=== PATIENT | female | born 1945 | race Caucasian/White ===

== ENCOUNTER 2017-07-16 14:56 | Inpatient (IN) | payer OTHER, MEDICAID ==
[~2017-07-16] VITALS: Ht 157.5 cm; Wt 66.2 kg
[2017-07-16 16:46] LABS: INR 1.4
[2017-07-16 16:48] LABS: BASOPHILS % 0.3 % (0.0-2.0); EOSINOPHILS % 0.7 % (0.0-5.0); HEMATOCRIT. 44.9 % (36.0-48.0); HEMOGLOBIN. 15.2 g/dL (12.0-16.0); LYMPHOCYTES % 14.2 % (20.0-50.0); MEAN CORPUSCULAR HEMOGLOBIN 32.1 pg (28.0-32.0); MEAN CORPUSCULAR VOLUME 94.6 fL (81.0-99.0); MEAN PLATELET VOLUME 10.1 fl (7.4-10.4); MONOCYTES % 8.5 % (2.0-8.0); NEUTROPHILS % 76.3 % (40.0-76.0); PLATELET 122 x1000/uL (130-400); RED BLOOD CELL COUNT 4.75 mill/uL (4.2-5.4); RED CELL DISTRIBUTION WIDTH 14.4 % (11.6-14.6)
[2017-07-16] MEDS ORDERED: AZITHROMYCIN 500 MG in DEXT 5% WATER 250 ML IV STA (16:48)
[2017-07-16 16:49] LABS: CARBON DIOXIDE 24 mEq/L (21-32); CHLORIDE 101 mEq/L (98-107)
[2017-07-16 16:56] LABS: TROPONIN I 0.03 ng/mL (0.00-0.04)
[2017-07-16] MEDS ORDERED: CEFTRIAXONE 1 G PREMIX 50 ML IV ONE (17:00)
[2017-07-16] MEDS ORDERED: POTASSIUM CHLORIDE 20MEQ TABLET SR PO ONE (17:15)
[2017-07-16] MEDS ORDERED: ONDANSETRON HCL 4MG/2ML VIAL IV PRN (18:15)
[2017-07-16] MEDS ORDERED: ACETAMINOPHEN 650MG/20.3ML UDC GT PRN (18:15)
[2017-07-16] MEDS ORDERED: MAGNESIUM/ALUMINUM HYDROXIDE/SIMETHICONE 30ML UDC PO PRN (18:15)
[2017-07-16] MEDS ORDERED: DIPHENHYDRAMINE 50MG/ML VIAL IV PRN (18:15)
[2017-07-16] MEDS ORDERED: NA PHOS,M-B/NA PHOS,DI-BA ENEMA 118ML PR PRN (18:15)
[2017-07-16] MEDS ORDERED: CLONIDINE 0.1MG TABLET PO PRN (18:15)
[2017-07-16] MEDS ORDERED: GUAIFENESIN 200MG/10ML SUGAR FREE UDC PO PRN (18:15)
[2017-07-16] MEDS ORDERED: IPRATROPIUM/ALBUTEROL 0.5-3(2.5)MG/3ML NEB INH PRN (18:15)
[2017-07-16] MEDS ORDERED: ACETAMINOPHEN 325MG TABLET PO PRN (18:15)
[2017-07-16] MEDS ORDERED: ACETAMINOPHEN 650MG SUPP PR PRN (18:15)
[2017-07-16] MEDS ORDERED: DOCUSATE SODIUM 100MG CAPSULE PO PRN (18:15)
[2017-07-16] MEDS ORDERED: MORPHINE SULFATE 2 MG/ML CPJ (NOT FOR IM USE) IV ONE (18:30)
[2017-07-16] MEDS ORDERED: IOHEXOL-350 100 ML BOTTLE ONE (19:55)
[2017-07-16 20:36] VITALS: BP 137/61
[2017-07-16 21:00] VITALS: BP 137/61
[2017-07-16] MEDS ORDERED: ENOXAPARIN 40MG/0.4ML SYR SUBCUT SCH (21:00)
[2017-07-16] MEDS: HYDROCODONE/ACETAMINOPHEN 10/325MG TABLET PO PRN (22:01)
[2017-07-16] MEDS: PIPERACILLIN/TAZ 3.375G PREMIX 50 ML IV SCH (22:04)
[2017-07-16] MEDS: SODIUM CHLORIDE 0.9% INJ 3ML FLUSH IVF SCH (22:06)
[2017-07-16] MEDS ORDERED: LEVOFLOXACIN 500MG PREMIX 100 ML IV SCH (23:00)
[2017-07-17] VITALS: BP 144/79
[2017-07-17] MEDS: IPRATROPIUM/ALBUTEROL 0.5-3(2.5)MG/3ML NEB INH SCH ×4 (00:27→20:38)
[2017-07-17 01:14] LABS: TROPONIN I 0.04 ng/mL (0.00-0.04)
[2017-07-17] MEDS ORDERED: BISA-81 RC (03:07)
[2017-07-17] MEDS ORDERED: ACET12.53 PO (03:22)
[2017-07-17] MEDS ORDERED: POLY17PO3 PO (03:22)
[2017-07-17] MEDS ORDERED: DARI15TA PO (03:22)
[2017-07-17] MEDS ORDERED: AMLO10TA80 PO (03:22)
[2017-07-17] MEDS ORDERED: OCD PO (03:27)
[2017-07-17] MEDS ORDERED: FLUT16SP15 NS (03:27)
[2017-07-17] MEDS ORDERED: HYDR25TA PO (03:27)
[2017-07-17] MEDS ORDERED: ATEN-42 PO (03:27)
[2017-07-17] MEDS ORDERED: ATOR20TA65 PO (03:27)
[2017-07-17] MEDS ORDERED: CHOL500010 PO (03:29)
[2017-07-17] MEDS ORDERED: FERR325T6 PO (03:29)
[2017-07-17] MEDS ORDERED: OMEP20CA10 PO (03:29)
[2017-07-17 04:00] VITALS: BP 142/72
[2017-07-17] MEDS: PIPERACILLIN/TAZ 3.375G PREMIX 50 ML IV SCH ×3 (05:14→22:28)
[2017-07-17] MEDS: SODIUM CHLORIDE 0.9% INJ 3ML FLUSH IVF SCH ×3 (05:19→22:35)
[2017-07-17 07:03] LABS: BASOPHILS % 0.5 % (0.0-2.0); EOSINOPHILS % 1.3 % (0.0-5.0); HEMATOCRIT. 39.5 % (36.0-48.0); HEMOGLOBIN. 13.9 g/dL (12.0-16.0); LYMPHOCYTES % 15.5 % (20.0-50.0); MEAN CORPUSCULAR HEMOGLOBIN 33.2 pg (28.0-32.0); MEAN CORPUSCULAR VOLUME 94.2 fL (81.0-99.0); MEAN PLATELET VOLUME 9.7 fl (7.4-10.4); MONOCYTES % 10.2 % (2.0-8.0); NEUTROPHILS % 72.5 % (40.0-76.0); PLATELET 102 x1000/uL (130-400); RED BLOOD CELL COUNT 4.19 mill/uL (4.2-5.4); RED CELL DISTRIBUTION WIDTH 14.3 % (11.6-14.6)
[2017-07-17 07:47] LABS: CARBON DIOXIDE 25 mEq/L (21-32); CHLORIDE 100 mEq/L (98-107)
[2017-07-17 07:55] LABS: CREATINE KINASE 302 IU/L (26-192); HDL CHOLESTEROL 65 mg/dL (40-59); LDL CHOLESTEROL 53 mg/dL (5-100); TROPONIN I 0.04 ng/mL (0.00-0.04)
[2017-07-17 08:00] VITALS: BP 139/76
[2017-07-17 08:15] LABS: CLARITY URINE CLEAR (CLEAR); COLOR URINE YELLOW (YELLOW); GLUCOSE URINE NEGATIVE (NEGATIVE); KETONES URINE TRACE (NEGATIVE); LEUKOCYTE ESTERASE URINE 1+ (NEGATIVE); NITRITE URINE NEGATIVE (NEGATIVE); OCCULT BLOOD URINE TRACE (NEGATIVE); PH URINE 5.5 (4.5-8.0); PROTEIN URINE TRACE (NEGATIVE); SPECIFIC GRAVITY URINE 1.079 (1.005-1.030); UROBILINOGEN URINE 0.2 E.U./dL (0.2-1.0)
[2017-07-17] MEDS: HYDROCODONE/ACETAMINOPHEN 10/325MG TABLET PO PRN ×2 (08:17→20:04)
[2017-07-17 08:40] LABS: *AMPHETAMINES SCREEN URINE NEGATIVE (NEGATIVE); *BARBITURATES SCREEN URINE NEGATIVE (NEGATIVE); *BENZODIAZEPINES SCREEN URINE NEGATIVE (NEGATIVE); *COCAINE SCREEN URINE NEGATIVE (NEGATIVE); CANNABINOID URINE SCREEN NEGATIVE (NEGATIVE); METHADONE URINE SCREEN NEGATIVE (NEGATIVE); OPIATES URINE SCREEN PRESUMTIVE POSITIVE (NEGATIVE); PHENCYCLIDINE URINE SCREEN NEGATIVE (NEGATIVE)
[2017-07-17] MEDS ORDERED: ATENOLOL 25MG TABLET PO SCH (11:30)
[2017-07-17] MEDS ORDERED: BISACODYL 5MG TABLET PO PRN (11:30)
[2017-07-17] MEDS ORDERED: LACTULOSE 20G/30ML UDC PO PRN (11:30)
[2017-07-17] MEDS ORDERED: POLYETHYLENE GLYCOL 3350 (17GM) 1 DOSE PACK PO PRN (11:30)
[2017-07-17] MEDS ORDERED: POTASSIUM CHLORIDE 20MEQ TABLET SR PO SCH (11:30)
[2017-07-17 12:00] VITALS: BP_SYST 13; BP_SYST 141; BP_DIAS 73; BP_DIAS 75
[2017-07-17] MEDS: HYDROCHLOROTHIAZIDE 25MG TABLET PO SCH (12:23)
[2017-07-17] MEDS: ATORVASTATIN CALCIUM 20MG TABLET PO SCH (12:23)
[2017-07-17] MEDS: AMLODIPINE 10MG TABLET PO SCH (12:23)
[2017-07-17] MEDS: ATENOLOL 50 MG TABLET PO SCH (14:35)
[2017-07-17 16:00] VITALS: BP 130/73
[2017-07-17] MEDS: CALCIUM CARBONATE/VITAMIN D3 500MG TABLET PO SCH (17:09)
[2017-07-17 20:00] VITALS: BP 113/66
[2017-07-17] MEDS: POTASSIUM CHLORIDE 20MEQ TABLET SR PO PRN (20:03)
[2017-07-17] MEDS: OMEPRAZOLE 20MG CAPSULE EXTENDED RELEASE PO SCH (20:05)
[2017-07-17] MEDS ORDERED: LEVOFLOXACIN 750MG PREMIX 150 ML IV SCH (21:00)
[2017-07-17] MEDS: FUROSEMIDE 40MG TABLET PO SCH (22:31)
[2017-07-18] VITALS: BP 139/72
[2017-07-18] MEDS: IPRATROPIUM/ALBUTEROL 0.5-3(2.5)MG/3ML NEB INH SCH ×4 (01:10→20:45)
[2017-07-18 04:00] VITALS: BP 127/64
[2017-07-18] MEDS: OMEPRAZOLE 20MG CAPSULE EXTENDED RELEASE PO SCH ×2 (06:22→22:22)
[2017-07-18] MEDS: SODIUM CHLORIDE 0.9% INJ 3ML FLUSH IVF SCH ×3 (06:22→22:22)
[2017-07-18] MEDS: PIPERACILLIN/TAZ 3.375G PREMIX 50 ML IV SCH ×3 (06:22→22:22)
[2017-07-18 08:00] VITALS: BP 93/43
[2017-07-18] MEDS: AMLODIPINE 10MG TABLET PO SCH (09:00)
[2017-07-18] MEDS: FUROSEMIDE 40MG TABLET PO SCH ×2 (09:00→22:22)
[2017-07-18] MEDS: ATENOLOL 50 MG TABLET PO SCH (09:00)
[2017-07-18] MEDS: ATORVASTATIN CALCIUM 20MG TABLET PO SCH (09:01)
[2017-07-18] MEDS: HYDROCHLOROTHIAZIDE 25MG TABLET PO SCH (09:01)
[2017-07-18] MEDS: CALCIUM CARBONATE/VITAMIN D3 500MG TABLET PO SCH ×2 (09:02→18:20)
[2017-07-18 11:59] VITALS: BP 107/61
[2017-07-18] MEDS: HYDROCODONE/ACETAMINOPHEN 10/325MG TABLET PO PRN (12:35)
[2017-07-18 16:00] VITALS: BP 138/68
[2017-07-18 20:00] VITALS: BP 115/68
[2017-07-18] MEDS ORDERED: FURO-151 PO (22:57)
[2017-07-19] VITALS (7 sets, daily range): BP systolic 106–151; BP diastolic 51–73
[2017-07-19] MEDS: HYDROCODONE/ACETAMINOPHEN 10/325MG TABLET PO PRN ×2 (00:14→09:13)
[2017-07-19] MEDS: IPRATROPIUM/ALBUTEROL 0.5-3(2.5)MG/3ML NEB INH SCH ×3 (02:45→16:34)
[2017-07-19 06:21] LABS: BASOPHILS % 0.3 % (0.0-2.0); EOSINOPHILS % 2.4 % (0.0-5.0); HEMATOCRIT. 41.3 % (36.0-48.0); LYMPHOCYTES % 19.1 % (20.0-50.0); MEAN CORPUSCULAR VOLUME 94.3 fL (81.0-99.0); MEAN PLATELET VOLUME 9.3 fl (7.4-10.4); MONOCYTES % 10.3 % (2.0-8.0); NEUTROPHILS % 67.9 % (40.0-76.0); PLATELET 84 x1000/uL (130-400); RED BLOOD CELL COUNT 4.38 mill/uL (4.2-5.4); RED CELL DISTRIBUTION WIDTH 13.8 % (11.6-14.6)
[2017-07-19] MEDS: SODIUM CHLORIDE 0.9% INJ 3ML FLUSH IVF SCH ×2 (06:33→14:26)
[2017-07-19] MEDS: PIPERACILLIN/TAZ 3.375G PREMIX 50 ML IV SCH ×2 (06:33→14:26)
[2017-07-19] MEDS: OMEPRAZOLE 20MG CAPSULE EXTENDED RELEASE PO SCH (06:33)
[2017-07-19] MEDS: AMLODIPINE 10MG TABLET PO SCH (08:50)
[2017-07-19] MEDS: ATENOLOL 50 MG TABLET PO SCH (08:51)
[2017-07-19] MEDS: CALCIUM CARBONATE/VITAMIN D3 500MG TABLET PO SCH ×2 (09:12→16:22)
[2017-07-19] MEDS: HYDROCHLOROTHIAZIDE 25MG TABLET PO SCH (09:13)
[2017-07-19] MEDS: FUROSEMIDE 40MG TABLET PO SCH (09:13)
[2017-07-19] MEDS: ATORVASTATIN CALCIUM 20MG TABLET PO SCH (09:16)
[2017-07-19 11:04] LABS: CHLORIDE 92 mEq/L (98-107)
[2017-07-19 11:14] LABS: CARBON DIOXIDE 34 mEq/L (21-32)
[2017-07-19] MEDS: POTASSIUM CHLORIDE 20MEQ TABLET SR PO PRN (11:41)
[2017-07-19 13:33] LABS: HEPATITIS B SURFACE ANTIGEN NEGATIVE
[2017-07-19 14:01] LABS: HEPATITIS B CORE AB IGM NEGATIVE
[2017-07-19 14:03] LABS: HEPATITIS A AB IGM NEGATIVE (NEGATIVE)
[2017-07-19] MEDS ORDERED: LEVOFLOXACIN 250MG TABLET PO SCH (21:00)
[2017-07-19] MEDS ORDERED: POTASSIUM CHLORIDE 20MEQ TABLET SR PO SCH (21:30)
[2017-07-21 17:12] LABS: HISTOPLASMA ABS QT DID Negative (Neg:<1:1)
== END 2017-07-19 20:30 | disposition short-term general hospital (02) | DRG 432 ==
LOC: ER 15:01 → 8WST 15:15 → ENRESERV 17:34 → EDBEDREQ 20:24
PROVIDERS: ADMIT Family Medicine; ATTEND Family Medicine
DX: K74.60 Unspecified cirrhosis of liver (principal); J96.00 Acute respiratory failure, unspecified whether with hypoxia or hypercapnia; J18.9 Pneumonia, unspecified organism; E44.0 Moderate protein-calorie malnutrition; J90 Pleural effusion, not elsewhere classified; I27.20 Pulmonary hypertension, unspecified; R18.8 Other ascites; J44.0 Chronic obstructive pulmonary disease with (acute) lower respiratory infection; E66.9 Obesity, unspecified; E87.6 Hypokalemia; K44.9 Diaphragmatic hernia without obstruction or gangrene; I83.90 Asymptomatic varicose veins of unspecified lower extremity; I11.9 Hypertensive heart disease without heart failure; M47.9 Spondylosis, unspecified; Z60.2 Problems related to living alone; Z98.891 History of uterine scar from previous surgery; Z99.81 Dependence on supplemental oxygen; Z87.81 Personal history of (healed) traumatic fracture; Z68.26 Body mass index [BMI] 26.0-26.9, adult
CPT/HCPCS: 36415; 71010; 71275; 76705; 80053; 80061; 80305; 81001; 82105; 82270; 82550; 83615; 83880; 84484; 85025; 85610; 86635; 86698; 86705; 86709; 86803; 87040; 87340; 93005; 94640; 94664; 96365; 96367; 97110; 97116; 97162; 97166; 99285; C1893; J0456; J0696; J1650; J1956; J2270; J2405; J2543; J7040; J7060; J7620; Q9967